=== PATIENT | male | born 1945 | race Caucasian/White ===

== ENCOUNTER 2018-05-06 16:41 | Emergency (ER) | payer OTHER, MEDICARE ==
[~2018-05-06] VITALS: Ht 182.9 cm; Wt 97.7 kg
[~2018-05-06 16:41] MED LIST: ADVIL PM 38 MG-1 TAB PO; EFFEXOR75 MG PO; LIPITOR 40MG TA40 MG PO; NICARDIPINE HCL20 MG PO; TOPROL XL50 MG PO; VIAGRA100 MG PO
[2018-05-06 16:52] VITALS: TEMP 98
[2018-05-06] MEDS ORDERED: NEURONTIN100 MG/CAP PO (17:40)
[2018-05-06] MEDS ORDERED: FLOMAX 0.40.4 MG/CAP PO (17:40)
[2018-05-06] MEDS ORDERED: CYMBALTA 60MG60 MG PO (17:41)
[2018-05-06] MEDS ORDERED: CARDIZEM120 MG PO (17:42)
[2018-05-06] MEDS ORDERED: HCTZ12.5TAB PO (17:42)
[2018-05-06] MEDS ORDERED: LIPITOR20 MG PO (17:43)
[2018-05-06 18:41] VITALS: BP 156/86; PULSE 69
== END 2018-05-06 18:42 | disposition home or self-care (01) ==
LOC: COL.ER 16:41
DX: S06.0X9A Concussion with loss of consciousness of unspecified duration, initial encounter (principal); S00.83XA Contusion of other part of head, initial encounter; S63.502A Unspecified sprain of left wrist, initial encounter; E78.5 Hyperlipidemia, unspecified; I10 Essential (primary) hypertension; W00.0XXA Fall on same level due to ice and snow, initial encounter; Y92.410 Unspecified street and highway as the place of occurrence of the external cause

== ENCOUNTER → 2021-04-03 | Outpatient (CLI) | payer MEDICARE, OTHER ==
[~2021-04-03] MED LIST changes: +CARDIZEM120 MG PO; +CYMBALTA 60MG60 MG PO; +FLOMAX 0.40.4 MG/CAP PO; +HCTZ12.5TAB PO; +LIPITOR20 MG PO; +NEURONTIN100 MG/CAP PO
[2021-04-03 14:47] LABS: COLLECTION METHOD CLEAN CATCH
[2021-04-03 15:01] LABS: MUCOUS Present (NOT PRESENT); PH 5 (5-8); SQUAMOUS EPITHELIAL 0-2 /hpf (0-10); URINE APPEARANCE Hazy (CLEAR/HAZY); URINE BACTERIA None Seen (NONE SEEN); URINE BILIRUBIN Negative (NEGATIVE); URINE BLOOD Negative (NEGATIVE); URINE COLOR Amber (YELLOW); URINE GLUCOSE Negative (NEGATIVE); URINE KETONE Negative (NEGATIVE); URINE LEUKOCYTE ESTERASE 1+ (NEGATIVE); URINE NITRATE Negative (NEGATIVE); URINE PROTEIN(semi-quant) 1+ (NEGATIVE); URINE RBC 0-2 /hpf (0-2); URINE UROBILINOGEN >=4.0 mg/dL (NEGATIVE)
[2021-04-03 15:16] LABS: BASO % 0.5 % (0.0-2.0); EOS # 0.2 K/mm3 (0.0-0.7); EOS % 2.8 % (0.0-4.0); GRAN # 6.2 K/mm3 (1.4-6.5); GRAN % 78.8 % (42.2-75.2); HEMOGLOBIN 11.8 g/dl (13.5-18.0); LYMPH # 0.6 K/mm3 (1.2-3.4); LYMPH % 7.5 % (20.0-51.0); MEAN CELL VOLUME 95 fl (80.0-100.0); MEAN CORPUSCULAR HEMOGLOBIN 32 pg (27-31); MEAN CORPUSCULAR HGB CONC 34 g/dl (33.0-37.0); MEAN PLATELET VOLUME 9.4 fl (7.4-10.4); MONO # 0.8 K/mm3 (0.1-0.6); MONO % 9.9 % (1.7-9.3); PLATELET COUNT 238 K/mm3 (130-400); RED BLOOD COUNT 3.64 M/mm3 (4.20-5.60); REDCELL DISTRIBUTION WIDTH-CV 13.2 % (11.5-14.5)
[2021-04-03 15:24] LABS: HEMATOCRIT 34.7 % (42.0-52.0)
[2021-04-03 15:36] LABS: ALBUMIN 3.1 gm/dL (3.4-4.8); BILIRUBIN,TOTAL 0.6 mg/dL (0.2-1.2); C-REACTIVE PROTEIN 14.65 mg/dL (0.00-0.50); CREATININE, serum 1.05 mg/dL (0.72-1.25); TOTAL PROTEIN 7.3 gm/dL (6.2-8.1)
== END ==
LOC: COL.RAD 14:04 → COL.LAB 14:17
PROVIDERS: Family Medicine
DX: M50.30 Other cervical disc degeneration, unspecified cervical region (principal); R50.9 Fever, unspecified; R53.1 Weakness